=== PATIENT | female | born 1995 | race Caucasian/White ===

== ENCOUNTER 2019-11-14 17:59 | Emergency (ER) | payer MEDICAID ==
[~2019-11-14] VITALS: Ht 157.5 cm; Wt 65.9 kg
[2019-11-14 18:05] VITALS: TEMP 100.5
[2019-11-14 18:28] LABS: COLLECTION METHOD CLEAN CATCH
[2019-11-14 18:41] LABS: MUCOUS Present /lpf; PH 6 (5-8); URINE APPEARANCE Cloudy; URINE BACTERIA Occasional /hpf; URINE BILIRUBIN Negative (NEGATIVE); URINE BLOOD Negative (NEGATIVE); URINE COLOR Yellow; URINE GLUCOSE Negative (NEGATIVE); URINE KETONE Negative (NEGATIVE); URINE LEUKOCYTE ESTERASE Trace (NEGATIVE); URINE NITRATE Positive (NEGATIVE); URINE PROTEIN(semi-quant) Negative (NEGATIVE); URINE RBC 0-2 /hpf
[2019-11-14] MEDS ORDERED: OMNICEF 300MG300 MG PO (18:58)
[2019-11-14 19:26] VITALS: BP 124/71; PULSE 90
== END 2019-11-14 19:35 | disposition home or self-care (01) ==
LOC: COL.ER 17:59
PROVIDERS: Emergency Medicine
DX: R50.9 Fever, unspecified (principal); M79.10 Myalgia, unspecified site; Z20.828 Contact with and (suspected) exposure to other viral communicable diseases; Z32.02 Encounter for pregnancy test, result negative

== ENCOUNTER 2020-01-01 17:21 | Emergency (ER) | payer MEDICAID ==
[~2020-01-01] VITALS: Ht 157.5 cm; Wt 63.6 kg
[~2020-01-01 17:21] MED LIST: OMNICEF 300MG300 MG PO
[2020-01-01 17:36] VITALS: BP 139/80; TEMP 98
[2020-01-01 18:07] LABS: COLLECTION METHOD CLEAN CATCH
[2020-01-01 18:19] LABS: MUCOUS Present /lpf; PH 5 (5-8); URINE APPEARANCE Hazy; URINE BACTERIA Moderate /hpf; URINE BILIRUBIN Negative (NEGATIVE); URINE BLOOD 1+ (NEGATIVE); URINE COLOR Yellow; URINE GLUCOSE Negative (NEGATIVE); URINE KETONE Negative (NEGATIVE); URINE LEUKOCYTE ESTERASE 2+ (NEGATIVE); URINE NITRATE Negative (NEGATIVE); URINE PROTEIN(semi-quant) Negative (NEGATIVE); URINE RBC 0-2 /hpf
[2020-01-01] MEDS ORDERED: MACROBID 1100 MG/CAP PO (18:29)
[2020-01-01 18:36] VITALS: PULSE 76
== END 2020-01-01 18:36 | disposition home or self-care (01) ==
LOC: COL.ER 17:21
PROVIDERS: Emergency Medicine
DX: N39.0 Urinary tract infection, site not specified (principal); Z32.02 Encounter for pregnancy test, result negative